=== PATIENT | female | born 1935 | race African-American/Black ===

== ENCOUNTER 2016-11-26 21:00 | Emergency (ER) | payer OTHER ==
[~2016-11-26] VITALS: Ht 157.5 cm; Wt 56.7 kg
[~2016-11-26 21:00] MED LIST: D5 1/2NS 1,000 ML IV SCH
[2016-11-26 21:30] VITALS: BP 135/82
[2016-11-26] MEDS ORDERED: ASPIRIN EC81 MG ORAL (21:30)
[2016-11-26] MEDS ORDERED: HYDROCHLOROTH12.5 M2 ORAL (21:30)
[2016-11-26] MEDS ORDERED: Morphine Sulfate 4mg/ml Inj IVP ONE (22:00)
[2016-11-26 22:37] LABS: BASOPHILS % (AUTO) 0.7 % (0.0-2.0); EOSINOPHILS % (AUTO) 1.3 % (0.0-3.0); LYMPHOCYTES % (AUTO) 29.5 % (20.0-45.0); MEAN CORPUSCULAR HEMOGLOBIN 32.9 PG (27.0-31.0); MEAN CORPUSCULAR HGB CONC 36.3 G/DL (32.0-36.0); MEAN CORPUSCULAR VOLUME 91 FL (80-99); MEAN PLATELET VOLUME 8.8 FL (6.5-10.1); NEUTROPHILS % (AUTO) 60.6 % (45.0-75.0); PLATELET COUNT 147 K/UL (150-450); RED CELL DISTRIBUTION WIDTH 10.7 % (11.6-14.8); WHITE BLOOD COUNT 6.1 K/UL (4.8-10.8)
[2016-11-26 22:37] LABS: APPEARANCE,URINE CLEAR; KETONES,URINE NEGATIVE (NEGATIVE); LEUKOCYTE ESTERASE ,URINE 2+ (NEGATIVE); NITRITE,URINE NEGATIVE (NEGATIVE); PH,URINE 6 (4.5-8.0); PROTEIN,URINE NEGATIVE (NEGATIVE); UROBILINOGEN,URINE NORMAL MG/DL (0.0-1.0)
[2016-11-26 22:43] LABS: RBC,URINE 0-2 /HPF (0 - 2); SQUAMOUS EPITHELIAL CELL,UR OCCASIONAL /LPF (NONE/OCC); WBC,URINE 0-2 /HPF (0 - 2)
[2016-11-26 22:49] LABS: PROTHROMBIN TIME 10.7 SEC (9.30-11.50)
[2016-11-26 22:52] LABS: ALANINE AMINOTRANSFERASE 8 U/L (3-33); ANION GAP 10 (5-15); ASPARTATE AMINO TRANSFERASE 19 U/L (5-40); CALCIUM 9.2 mg/dL (8.6-10.2); CARBON DIOXIDE 28 mEQ/L (20-30); CHLORIDE 99 mEQ/L (98-107); CREATININE 0.5 mg/dL (0.5-0.9); HEMOLYSIS 11; LIPASE 28 U/L (< 60); POTASSIUM 3.3 mEQ/L (3.4-4.9); SODIUM 137 mEQ/L (135-145); TROPONIN I < 0.30 ng/mL (<=0.30)
[2016-11-26 23:15] LABS: ALBUMIN/GLOBULIN RATIO 2.6 (1.0-2.7); TOTAL PROTEIN 6.6 g/dL (6.6-8.7)
[2016-11-26] MEDS ORDERED: Metoclopramide 10mg/2ml Inj IVP PRN (23:15)
[2016-11-26] MEDS ORDERED: Morphine Sulfate 2mg/ml Inj IVP PRN (23:15)
[2016-11-26] MEDS ORDERED: Nitroglycerin Subl 0.4mg tab (Bottle Of 25) SL PRN (23:15)
[2016-11-26] MEDS ORDERED: Miralax 17gm pkt ORAL PRN (23:15)
[2016-11-26] MEDS ORDERED: LORazepam Inj 2mg/ml 1ml IV PRN (23:15)
[2016-11-26] MEDS ORDERED: Mylanta II UD 30ml ORAL PRN (23:15)
[2016-11-26 23:30] VITALS: BP 140/81
[2016-11-27] MEDS ORDERED: KCl 10% 20 mEq/15ml liquid ORAL STA (00:06)
[2016-11-27] MEDS: Metoclopramide 10mg/2ml Inj IVP ONE ×2 (01:04→01:07)
[2016-11-27] MEDS: DiphenhydrAMINE 50mg/ml Inj IVP ONE ×2 (01:04→01:07)
[2016-11-27 01:30] VITALS: BP 144/75
--- NOTE | 2016-11-27 02:09 | Emergency Room Report ---
History of Present Illness General Chief Complaint: Abdominal Pain Source: Patient, Family Member Present Illness HPI Patient presents with abdominal discomfort and vomiting. This began yesterday. There's no diarrhea. She denies any fevers. The pain is more on the right lower quadrant but she feels it diffusely through the abdomen. She did not take any medication for this today. Pain is 8/10, poorly characterized, constant. Nausea persists. No blood in vomit. Decreased appetite. In the past she's been admitted for intractable abdominal pain. They do not know what the cause was at that time. We have no records of that visit. She feels some weakness. There's been no diarrhea. She moved her bowels earlier. There isn't any dysuria. No chest chest pain, palpitations, rashes. Post kristi. Treated for hypertension. Allergies: Coded Allergies: No Known Allergies (Unverified , 11/26/16) Patient History Past Medical History: see triage record, HTN Past Surgical History: kristi Social History: Denies: alcohol use, drug use, smoking Social History Narrative here with son Reviewed Nursing Documentation: PMH: Agreed, PSxH: Agreed Nursing Documentation-PMH Hx Hypertension: Yes Review of Systems All Other Systems: negative except mentioned in HPI Physical Exam Vital Signs Date Time Temp Pulse Resp B/P Pulse Ox O2 Delivery O2 Flow Rate FiO2 11/26/16 21:24 98.1 62 16 135/82 97 Room Air Sp02 EP Interpretation: reviewed, normal General Appearance: well appearing, no apparent distress, GCS 15, other - frail Head: normocephalic Eyes: bilateral eye PERRL, bilateral eye normal inspection ENT: moist mucus membranes Neck: supple Respiratory: lungs clear, normal breath sounds Cardiovascular #1: regular rate, rhythm Cardiovascular #2: 2+ radial (R) Gastrointestinal: normal inspection, normal bowel sounds, no mass, non- distended, no guarding, no rebound, tenderness - R sided and RLQ Genitourinary: no CVA tenderness Musculoskeletal: back normal, gait/station normal, normal range of motion Neurologic: alert, oriented x3, motor strength/tone normal, DTRs symmetric, sensory intact, cerebellar normal, normal gait, speech normal Psychiatric: depressed affect Skin: normal inspection, warm/dry Medical Decision Making Diagnostic Impression: Primary Impression: Abdominal pain Qualified Codes: R10.31 - Right lower quadrant pain Additional Impression: Hypokalemia ER Course Patient with RLQ abdominal pain and vomiting. Differential is appendicitis, diverticulitis, pancreatitis, gastritis, PUD amongst others. Post kristi. Evaluation with EKG, CT abdomen, labs and UA. Treatment with IV hydration, morphine and zofran. Labs with slight hypokalemia, normal WBC and h/h. Normal UA. Long-time for CT scan to be done. CT scan was normal except hiatal hernia and post kristi. The patient was improved and stated that the pain was gone. She is tolerating by mouth without any difficulty. We attempted to give her potassium earlier but she stated she couldn't take this because she had nausea. I switched the HCTZ to dyazide. Patient stable for outpatient observation and treatment. After discharge the patient stated she felt weak. She was reevaluated and he requested that she go home to try resting and to fill the medication that she had. Laboratory Tests Test 11/26/16 21:45 11/26/16 22:29 Urine Color Pale yellow Urine Appearance Clear Urine pH 6 (4.5-8.0) Urine Specific [place] 1.005 (1.005-1.035) Urine Protein Negative (NEGATIVE) Urine Glucose (UA) Negative (NEGATIVE) Urine Ketones Negative (NEGATIVE) Urine Occult Blood 2+ (NEGATIVE) H Urine Nitrite Negative (NEGATIVE) Urine Bilirubin Negative (NEGATIVE) Urine Urobilinogen Normal MG/DL (0.0-1.0) Urine Leukocyte Esterase 2+ (NEGATIVE) H Urine RBC 0-2 /HPF (0 - 2) Urine WBC 0-2 /HPF (0 - 2) Urine Squamous Epithelial Cells Occasional /LPF Urine Bacteria None /HPF (NONE) White Blood Count 6.1 K/UL (4.8-10.8) Red Blood Count 4.20 M/UL (4.20-5.40) Hemoglobin 13.8 G/DL (12.0-16.0) Hematocrit 38.0 % (37.0-47.0) Mean Corpuscular Volume 91 FL (80-99) Mean Corpuscular Hemoglobin 32.9 PG (27.0-31.0) H Mean Corpuscular Hemoglobin Concent 36.3 G/DL (32.0-36.0) H Red Cell Distribution Width 10.7 % (11.6-14.8) L Platelet Count 147 K/UL (150-450) L Mean Platelet Volume 8.8 FL (6.5-10.1) Neutrophils (%) (Auto) 60.6 % (45.0-75.0) Lymphocytes (%) (Auto) 29.5 % (20.0-45.0) Monocytes (%) (Auto) 8.0 % (1.0-10.0) Eosinophils (%) (Auto) 1.3 % (0.0-3.0) Basophils (%) (Auto) 0.7 % (0.0-2.0) Prothrombin Time 10.7 SEC (9.30-11.50) Prothrombin Time INR 1.0 (0.9-1.1) PTT 26 SEC (23-33) Sodium Level 137 mEQ/L (135-145) Potassium Level 3.3 mEQ/L (3.4-4.9) L Chloride Level 99 mEQ/L (98-107) Carbon Dioxide Level 28 mEQ/L (20-30) Anion Gap 10 (5-15) Blood Urea Nitrogen 12 mg/dL (7-23) Creatinine 0.5 mg/dL (0.5-0.9) Estimate Glomerular Filtration Rate mL/min (>60) Glucose Level 91 mg/dL (74-106) Calcium Level 9.2 mg/dL (8.6-10.2) Total Bilirubin 0.6 mg/dL (0.0-1.2) Aspartate Amino Transferase (AST) 19 U/L (5-40) Alanine Aminotransferase (ALT) 8 U/L (3-33) Alkaline Phosphatase 52 U/L (35-104) Troponin I < 0.30 ng/mL (<=0.30) Total Protein 6.6 g/dL (6.6-8.7) Albumin 4.8 g/dL (3.5-5.2) Globulin 1.8 g/dL Albumin/Globulin Ratio 2.6 (1.0-2.7) Lipase 28 U/L (< 60) EKG Diagnostic Results Rate: normal Rhythm: NSR ST Segments: no acute changes - poss LAE Rhythm Strip Diag. Results EP Interpretation: yes Rhythm: NSR, no PVC's, no ectopy CT/MRI/US Diagnostic Results CT/MRI/US Diagnostic Results : Imaging Test Ordered: abd pelvis Impression Impression: No acute abnormality Surgically absent gallbladder. Extrahepatic and central intrahepatic biliary ductal location, probably related to age and postcholecystectomy state. The downstream obstructive lesion demonstrated, but downstream obstruction not completely excludable. Correlate with liver function tests Liver cysts. Subcentimeter low-attenuation liver lesions which are too small to characterize, most likely benign simple cysts Subcentimeter low-attenuation right renal lesion, too small to characterize, most likely benign simple cyst Degenerative spondylosis changes Posterior compressive atelectasis at the lung bases Mild cardiomegaly Last Vital Signs Date Time Temp Pulse Resp B/P Pulse Ox O2 Delivery O2 Flow Rate FiO2 11/27/16 02:55 97.5 60 14 158/81 99 Room Air Status: improved Disposition: HOME, SELF-CARE Condition: Improved Scripts Acetaminophen (Tylenol) 325 Mg Tablet 650 MG ORAL Q6H Y for Prn Pain/Headache/Temp > 101, #30 TAB 0 Refills Prov: Israel Chan M.D. 11/27/16 Triamterene/Hydrochlorothiazide* (DYAZIDE 37.5-25 MG TAB*) 1 Each Tablet 1 TAB ORAL DAILY, #30 TAB Prov: Israel Chan M.D. 11/27/16 Dicyclomine Hcl* (BENTYL*) 10 Mg Capsule 10 MG ORAL FOUR TIMES A DAY Y for abdominal spasms, #14 CAP Prov: Israel Chan M.D. 11/27/16 Referrals: [facility] (PCP) Israel Chan M.D. Nov 27, 2016 02:09
[2016-11-27] MEDS ORDERED: BENTYL10 MG ORAL (02:15)
[2016-11-27] MEDS ORDERED: TRIAMTERENE-HC1 EAC5 ORAL (02:15)
[2016-11-27] MEDS ORDERED: TYLENOL325 MG ORAL (02:15)
[2016-11-27 02:55] VITALS: BP 158/81
[2016-11-27] MEDS ORDERED: Heparin 5000 units/ml inj SUBQ SCH (09:00)
--- NOTE | 2016-11-27 10:23 | Diagnostic Imaging Report ---
Clinical Indication: Abdominal pain, nausea Technique: No oral contrast utilized, per emergency room physician request IV administration nonionic contrast. Venous phase spiral acquisition obtained through the abdomen and pelvis. Multiplanar reconstructions were generated. Total dose length product 790 mGycm. CTDIvol(s) 16 mGy. Dose reduction achieved using automated exposure control Comparison: None Findings: The appendix is normal. No evidence of diverticulosis or diverticulitis. No small bowel distention. No free or loculated intraperitoneal air or fluid is evident is a small sliding-type hiatal hernia. The stomach and duodenum are unremarkable otherwise. The gallbladder is surgically absent. There is ectasia of the extrahepatic and central intrahepatic bile ducts, common bile duct measuring up to 11 mm in diameter. No downstream obstructive lesion demonstrated, however. Multiple cysts are seen within the liver. There are also subcentimeter low-attenuation lesions which are too small to characterize, most likely benign simple cysts or bile hamartomas. The pancreas, spleen, adrenals are unremarkable. The right kidney demonstrates a subcentimeter low-attenuation lesion which is too small to characterize, most likely a benign simple cyst. No mesenteric or retroperitoneal mass or adenopathy. No pelvic mass or adenopathy. The bones demonstrate degenerative spondylosis changes. Compressive atelectasis is seen at both lung bases. The heart is mildly enlarged. Impression: No acute abnormality Surgically absent gallbladder. Extrahepatic and central intrahepatic biliary ductal location, probably related to age and postcholecystectomy state. The downstream obstructive lesion demonstrated, but downstream obstruction not completely excludable. Correlate with liver function tests Liver cysts. Subcentimeter low-attenuation liver lesions which are too small to characterize, most likely benign simple cysts Subcentimeter low-attenuation right renal lesion, too small to characterize, most likely benign simple cyst Degenerative spondylosis changes Posterior compressive atelectasis at the lung bases Mild cardiomegaly This agrees with the preliminary interpretation provided overnight by [facility] teleradiology service. The CT scanner at [facility] is accredited by the [employer] and the scans are performed using protocols designed to limit radiation exposure to as low as reasonably achievable to attain images of sufficient resolution adequate for diagnostic evaluation.
--- NOTE | 2016-11-29 17:15 | Cardiology Report ---
APPROVED REPORT EKG Measurement Heart [id number] Normal sinus rhythm Possible Left atrial enlargement Borderline ECG
== END 2016-11-27 02:55 | disposition home or self-care (01) ==
LOC: EMR 21:42
DX: R10.31 Right lower quadrant pain (principal); E87.6 Hypokalemia; R11.10 Vomiting, unspecified; I10 Essential (primary) hypertension; Z90.49 Acquired absence of other specified parts of digestive tract; K76.89 Other specified diseases of liver
CPT/HCPCS: 36415; 74177; 80053; 81003; 83690; 84484; 85025; 85610; 85730; 86850; 86900; 86901; 93005; 96367; 96372; 96374; 96375; 99285; J2270; J2405; Q9967; 96365; J2765